=== PATIENT | male | born 1995 | race African-American/Black ===

== ENCOUNTER 2025-09-07 11:05 | Emergency (ER) | payer OTHER, MEDICAID ==
[~2025-09-07] VITALS: Ht 182.9 cm; Wt 66.2 kg
[2025-09-07] MEDS ORDERED: IBUPROFEN 600 MG TABLET ONE (11:36)
[2025-09-07] MEDS ORDERED: ACETAMINOPHEN ES 500 MG TABLET ONE (11:36)
[2025-09-07] MEDS: ACETAMINOPHEN 325 MG TABLET PO ONE (11:39)
[2025-09-07] MEDS: IBUPROFEN 600 MG TABLET PO ONE (11:39)
[2025-09-07 12:59] VITALS: BP 128/75; TEMP 98; O2SAT 99
== END 2025-09-07 13:00 | disposition home or self-care (01) ==
LOC: ER 11:10
DX: S20.212A Contusion of left front wall of thorax, initial encounter (principal); V89.2XXA Person injured in unspecified motor-vehicle accident, traffic, initial encounter; Y93.89 Activity, other specified; Y92.410 Unspecified street and highway as the place of occurrence of the external cause; Y99.9 Unspecified external cause status
CPT/HCPCS: 71100-TC